=== PATIENT | female | born 2000 | race Caucasian/White ===

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

== ENCOUNTER 2022-11-02 06:22 | Emergency (ER) | payer BC ==
[2022-11-02] MEDS ORDERED: Sodium Chloride 0.9% 10 ML Syringe FLUSH PRN (06:46)
[2022-11-02] MEDS ORDERED: Ondansetron 4 MG/2 ML SDV IVPUSH ONE (07:00)
[2022-11-02] MEDS ORDERED: Lactated Ringers 1,000 ML IV ONE (07:00)
[2022-11-02] MEDS ORDERED: fentaNYL 50 MCG/ML SDV IVPUSH ONE (07:26)
[2022-11-02] MEDS ORDERED: Ketorolac 15 MG/ML SDV IVPUSH ONE (07:27)
[2022-11-02 07:39] LABS: CHLORIDE,CL 103 mmol/L (98-107); SODIUM,NA 138 mmol/L (136-145)
[2022-11-02 07:40] LABS: ANION GAP 14.9 mmol/L (5-15); ESTIMATED GFR 107 mL/min (>=60)
[2022-11-02] MEDS ORDERED: Prochlorperazine 10 MG/2 ML SDV IV ONE (07:53)
[2022-11-02 07:54] LABS: CORONAVIRUS COVID-19 NAA NEGATIVE (NEGATIVE); RESPIRATORY SYNCYTIAL VIR NAA NEGATIVE (NEGATIVE)
[2022-11-02] MEDS ORDERED: diphenhydrAMINE 50 MG/ML SDV IVPUSH ONE (07:54)
[2022-11-02 08:13] VITALS: BP 128/87; PULSE 69
== END 2022-11-02 08:35 | disposition home or self-care (01) ==
LOC: VM.ED 06:22
DX: G43.909 Migraine, unspecified, not intractable, without status migrainosus (principal); Z20.822 Contact with and (suspected) exposure to COVID-19; Z79.899 Other long term (current) drug therapy; Z88.8 Allergy status to other drugs, medicaments and biological substances
CPT/HCPCS: 0241U; 36415; 80053; 81001; 81025; 82550; 83605; 83615; 83735; 84100; 85025; 86140; 87040; 96361; 96374; 96375; 99284; 99284-25; J0780; J1200; J1885; J2405; J7120